=== PATIENT | female | born 1995 | race Asian ===

== ENCOUNTER 2024-02-05 19:00 | Inpatient (IN) | payer OTHER ==
[2024-02-05 20:27] LABS: BASO % 0.2 % (0-2.0); EOS % 0.6 % (0-4.5); HEMATOCRIT 34.3 % (32.4-45.2); HEMOGLOBIN 11.4 GM/dL (10.7-15.3); MCH 29.8 pg (25.7-33.7); MCHC 33.3 g/dl (32.0-36.0); MEAN CELL VOLUME 89.4 fl (80-96); MEAN PLT VOLUME 10.2 fl (7.5-11.1); MONO % 6.2 % (3.8-10.2); PLATELET COUNT 145 10^3/uL (134-434); RBC 3.83 M/mm3 (3.60-5.2)
[2024-02-05 20:43] LABS: INR 0.94 (0.83-1.09); PROTHROMBIN TIME (PATIENT) 10.8 SEC (9.7-13.0)
[2024-02-05] MEDS: DEXTROSE 5%-LACTATED RINGERS 1,000 ML IV SCH (20:45)
[2024-02-05 20:49] LABS: CHLORIDE 110 mmol/L (98-107); POTASSIUM 3.8 mmol/L (3.5-5.1); SODIUM 135 mmol/L (136-145)
[2024-02-05 20:51] LABS: ALBUMIN 2.5 g/dl (3.4-5.0); ANION GAP 5 mmol/L (4-13); BLOOD UREA NITROGEN 7.9 mg/dL (7-18); CALCIUM 8.2 mg/dL (8.5-10.1); CO2 20 mmol/L (21-32); GLUCOSE,RANDOM 99 mg/dL (74-106)
[2024-02-05 20:54] LABS: CREATININE 0.5 mg/dL (0.55-1.3); SGOT/AST 8 U/L (15-37); SGPT/ALT 14 U/L (13-61)
[2024-02-05 20:56] LABS: BILIRUBIN,TOTAL 0.2 mg/dL (0.2-1); TOT PROT 6.1 g/dl (6.4-8.2)
[2024-02-05 20:57] LABS: ALK PHOS 123 U/L (45-117)
[2024-02-05 21:19] LABS: SYPHILIS W/ RPR CONF NON-REACTIVE (NONREACTIVE)
[2024-02-05 21:20] LABS: HEPATITIS B SURFACE AG MATERN NON-REACTIVE (NONREACTIVE)
[2024-02-05] MEDS: MISOPROSTOL 100 MCG TABLET PV SCH (21:52)
[2024-02-06] MEDS ORDERED: morphine SULFATE 4 MG/ML VIAL ONE (03:35)
[2024-02-06] MEDS: morphine CARPU-JECT 8 MG/1 ML DISP.SYRIN IVPB ONE (03:40)
[2024-02-06] MEDS: morphine SULFATE 4 MG/ML VIAL IVPB ONE (05:11)
[2024-02-06] MEDS ORDERED: OXYTOCIN 20 UNITS in 0.9% NS 20 UNIT/1,000 ML INFUS.BAG IV ONE ×2 (05:22→08:35)
[2024-02-06] MEDS: OXYTOCIN 20 UNITS in 0.9% NS 20 UNIT/1,000 ML INFUS.BAG IV SCH (05:45)
[2024-02-06 06:17] LABS: CORD BASE EXCESS -3.7 mmol/L (0-2); CORD HCO3 20.7 mmHg (20-29); CORD PCO2 36.2 mmHg (30-78); CORD pH 7.376 (7.14-7.44)
[2024-02-06] MEDS ORDERED: WITCH HAZEL 50% (TUCKS) 40 PAD/JAR PAD TP PRN (06:18)
[2024-02-06] MEDS: OXYTOCIN 30 UNITS in 0.9% NS 30 UNIT/500 ML INFUS.BAG IVPB SCH (06:26)
[2024-02-06] MEDS: ACETAMINOPHEN 325 MG TABLET (FP) PO PRN (13:52)
[2024-02-06] MEDS: IBUPROFEN 600 MG TABLET (FP) PO PRN (17:19)
[2024-02-07 07:51] LABS: BASO % 0.2 % (0-2.0); EOS % 1.7 % (0-4.5); HEMATOCRIT 32.5 % (32.4-45.2); HEMOGLOBIN 10.8 GM/dL (10.7-15.3); LYMPH % 28.1 % (8-40); MCH 30.1 pg (25.7-33.7); MCHC 33.2 g/dl (32.0-36.0); MEAN CELL VOLUME 90.7 fl (80-96); MEAN PLT VOLUME 10.5 fl (7.5-11.1); MONO % 7.2 % (3.8-10.2); NEUT % 62.8 % (42.8-82.8); PLATELET COUNT 149 10^3/uL (134-434); RBC 3.58 M/mm3 (3.60-5.2); RDW 13.7 % (11.6-15.6); WHITE BLOOD COUNT 8.1 K/mm3 (4.0-10.0)
[2024-02-07] MEDS: BENZOCAINE 28 GM HEMORRHOIDAL OINTMENT TP PRN (11:24)
[2024-02-07 23:56] VITALS: RESP 18
[2024-02-08 11:19] VITALS: BP 99/63; PULSE 79; TEMP 98.3
== END 2024-02-08 13:30 | disposition home or self-care (01) | DRG 560 ==
LOC: JLDR 19:00 → J3W 02-06 08:40
PROVIDERS: ADMIT Obstetrics & Gynecology Maternal & Fetal Medicine; ATTEND Obstetrics & Gynecology Maternal & Fetal Medicine
PROC: 10E0XZZ Delivery of Products of Conception, External Approach (ICD-10-PCS; principal; 2024-02-06)
PROC: 0KQM0ZZ Repair Perineum Muscle, Open Approach (ICD-10-PCS; 2024-02-06)
DX: O41.03X0 Oligohydramnios, third trimester, not applicable or unspecified (principal); O70.1 Second degree perineal laceration during delivery; O99.891 Other specified diseases and conditions complicating pregnancy; R78.71 Abnormal lead level in blood; Z3A.38 38 weeks gestation of pregnancy; Z37.0 Single live birth
CPT/HCPCS: 36415; 36600; 59409; 80053; 82803; 83655; 85025; 85610; 85730; 86780; 86803; 86850; 86900; 86901; 87340; 88307-TC